=== PATIENT | female | born 1975 | race Caucasian/White ===

== ENCOUNTER 2024-07-15 15:02 | Outpatient (AMB) | payer OTHER, SELFPAY ==
--- NOTE | 2024-07-15 15:11 | MHC.OFFWIV ---
Intake Vital Signs 07/15/24 15:13 Height 5 ft 7 in Weight 200 lb BMI 31.3 BP 122/80 Blood Pressure Location Lt brachial Position Sitting Pulse 96 Pulse Source Pulse Oximeter Pulse Oximetry (%) 99 Oxygen Delivery Method Room Air Intake Visit Reasons: [employer] strained her LT back knee Intake Note: Patient here because she had a fall two days ago, states when she fell her leg went behind/underneath her. Patient Tobacco Use Status: Former Tobacco user Allergies No Known Allergies Allergy (Verified 07/15/24 15:14) Do you need a note to return to daycare/school/sports/work: Yes HPI HPI Comments History of Present Illness Details This is a 48-year-old female with no stated past medical history presenting for evaluation of left posterior knee pain. Patient states on Friday afternoon she fell in the hallway of her home. Patient states she fell backwards in her left knee was bent in her distal lower leg was folded underneath her. Patient states she was able to get up independently however has been having posterior left knee pain when standing from a seated position and when ambulating. Patient states that the pain does not radiate. Patient states she is in no pain while at rest. Patient has been taking ibuprofen 400 mg every 6-8 hours, using ice and elevation as well. The patient denies any previous injury to her left knee. [facility] Social History Patient Tobacco Use Status: Former Tobacco user Review of Systems Const All systems reviewed & are unremarkable except as noted in HPI and below Reports as per HPI and Reports no additional complaints Eyes Reports no additional complaints ENT Reports no additional complaints Card Reports no additional complaints Resp Reports no additional complaints GI Reports no additional complaints Reports no additional complaints Musc Reports arthralgias (Posterior left knee), Denies joint swelling, Denies limited range of motion, Denies numbness and Denies tingling Skin/Breast Reports system reviewed and no additional complaints, except as documented Neuro Reports no additional complaints, Denies numbness, Denies tingling and Denies paresthesias Psych Reports no additional complaints Physical Exam Vital Signs: Last Vital Signs Pulse 96 07/15/24 15:13 BP 122/80 07/15/24 15:13 Pulse Ox 99 07/15/24 15:13 Oxygen Delivery Method Room Air 07/15/24 15:13 BMI result Body Mass Index 31.3 Const General: cooperative, healthy appearing, comfortable, no acute distress, well developed, alert and awake Nutritional Appearance: average body habitus Orientation/consciousness: patient oriented x3 Limitations: no limitations Skin General skin exam: no rashes or lesions noted Neuro General: patient oriented x3 Extrem Left lower extremity: normal to inspection, full ROM, no joint enlargement and knee Details: normal to inspection, normal ROM and knee ligament exam normal; no tenderness, no swelling, no ecchymosis and no unusual warmth; no edema Psych Appearance: grossly normal Mental Status: mental status grossly normal Insight: Good insight present (Psych) Judgement: Good judgement present (Psych) Assessment & Plan Assessment & Plan (1) Posterior left knee pain: Comment: There is no tenderness on examination, no evidence of a septic knee joint and no joint laxity and therefore plain film imaging will be deferred. Code(s): M25.562 - Pain in left knee Plan: Ibuprofen 600 mg every 6-8 hours, elevation and ice. Patient will follow up with her primary care provider if her symptoms have not significantly improved in 7-10 days. Patient is in agreement with this plan of care. Coding Level of Care Code Est Pt Level 3 (87241) Diagnoses Posterior left knee pain M25.562 Time Spent (min) 20
[2024-07-15 15:13] VITALS: BP 122/80; PULSE 96; O2SAT 99; BMI 31.3
== END 2024-07-15 15:33 | disposition home or self-care (01) ==
PROVIDERS: Visit Provider Physician Assistant
DX: M25.562 Pain in left knee (principal)

== ENCOUNTER → 2024-07-15 15:02 | Outpatient (BNVA) | payer OTHER, SELFPAY | PROVIDERS: Visit Provider Physician Assistant ==